=== PATIENT | female | born 1965 | race Caucasian/White ===

== ENCOUNTER 2021-09-09 15:08 | Outpatient (CLI) | payer OTHER, SELFPAY ==
--- NOTE | 2021-09-09 15:32 | MM_ITS ---
WS: [id number] BILATERAL 3D TOMOSYNTHESIS DIGITAL SCREENING MAMMOGRAPHY WITH CAD CLINICAL INFORMATION: SCREENING HISTORY: Screening mammogram. RIGHT breast pain COMPARISON: TECHNIQUE: Bilateral CC and MLO views. FINDINGS: Scattered fibroglandular densities bilaterally. A few tiny punctate calcifications. No suspicious foc al mass, asymmetry, calcifications, or architectural distortion. No evidence of malignancy. MM/[place] [id number] IMPRESSION: BI-RADS: 2-Benign FOLLOW UP: 1 Year Follow-up Recommend return to annual screening mammography.
== END 2021-09-09 15:09 | disposition home or self-care (01) ==
LOC: RAD 15:16
PROVIDERS: Family Provider Family Medicine; Visit Provider Family Medicine
DX: Z12.31 Encounter for screening mammogram for malignant neoplasm of breast (principal)
CPT/HCPCS: 77063; 77067

== ENCOUNTER → 2022-07-16 09:09 | Outpatient (BNVA) | payer OTHER, SELFPAY | PROVIDERS: Family Provider Family Medicine; Visit Provider Family Medicine | DX: R06.00 Dyspnea, unspecified (principal); R00.2 Palpitations; R07.89 Other chest pain | CPT/HCPCS: 80053; 80061; 84443; 85025 ==

== ENCOUNTER → 2023-05-13 10:22 | Outpatient (BNVA) | payer OTHER, SELFPAY | PROVIDERS: PCP Family Medicine; Visit Provider Nurse Practitioner Women's Health | DX: Z12.4 Encounter for screening for malignant neoplasm of cervix (principal); N93.9 Abnormal uterine and vaginal bleeding, unspecified | CPT/HCPCS: 82670; 83001; 83002; 87624 ==

== ENCOUNTER → 2023-06-10 13:48 | Outpatient (BNVA) | payer OTHER, SELFPAY | PROVIDERS: PCP Family Medicine; Visit Provider Nurse Practitioner Women's Health | DX: N93.9 Abnormal uterine and vaginal bleeding, unspecified (principal); R93.89 Abnormal findings on diagnostic imaging of other specified body structures | CPT/HCPCS: 76830 ==

== ENCOUNTER 2023-09-02 10:25 | Day surgery (SDC) | payer OTHER, SELFPAY ==
[2023-09-02] VITALS (7 sets, daily range): BP systolic 115–146; BP diastolic 71–85; PULSE 63–77; RESP 16–18; TEMP 36.1–36.6; O2SAT 95–98; BMI 35.2
--- NOTE | 2023-09-02 02:55 | P.HP_ITS ---
Same Day Surgery H&P Indication for Procedure/HPI DATE OF PROCEDURE: September 02, 2023 CHIEF COMPLAINT/INDICATIONFOR SURGICAL PROCEDURE: abnormal uterine bleeding PREOP DIAGNOSIS: abnormal uterine bleeding PLANNED PROCEDURE: Operation Date: 09/02/23 12:20 Proposed Procedures p Hysteroscopy, endometrial sampling, possible endometrial polypectomy 93354 N 93.9(Not Applicable) - Javed Trevizo MD s Poss Poylpectomy(Not Applicable) - Javed Trevizo MD 57 y.o. LNMP 2 years ago Since then, has had daily spotting Medications/Allergies* Home Medications Medication Instructions Recorded Confirmed Type aspirin 81 mg tablet,delayed 81 mg PO DAILY 08/18/22 09/01/23 History release ranitidine HCl 150 mg tablet 150 mg PO DAILY 08/18/22 09/01/23 History cetirizine 10 mg tablet (Zyrtec) 10 mg PO DAILY 09/01/23 09/01/23 History montelukast 10 mg tablet 10 mg PO DAILY 09/01/23 09/01/23 History Allergies/Adverse Reactions Allergy/AdvReac Type Severity Reaction Status Date / Time Penicillins AdvReac Unknown Unknown Verified 09/01/23 09:09 ARITHROMYCIN Allergy Unknown ADR-Vomitin Uncoded 06/30/23 10:58 g Pertinent History/Comorbid Conditions* Family History (Updated 05/13/23 @ 08:08 by Ana Ramirez CMA) Denies family history of Colon cancer Ovarian cancer Diabetes Heart disease Breast cancer Hypertension Uterine cancer Thyroid disease Stroke Pertinent Exam Findings alert, oriented x 3, clear to auscultation bilaterally and regular rate & rhythm Pertinent Data Pap 05-13-23 NILM Pelvic sono 06-10-23 endometrium thickened and heterogeneous, 1.4 cm Uterus 7.7 x 4.2 x 4.4 cm Irregular lobulated focus, 2 cm, noted in posterior fundus Normal ovaries Recommendations Surgery/Procedure today Coding Level of Care Code Acute Code for Chg Fwd Time Spent (min) 20
[2023-09-02] MEDS: sodium chloride 0.9% 1,000 ML 30 ML IV (11:09)
[2023-09-02] MEDS: scopolamine 1.5 Patch 1 PATCH TRANSDERMA (11:09)
--- NOTE | 2023-09-02 11:09 | W.PM.OPSUD ---
Surgery/Procedure H&P Update DATE OF PROCEDURE: September 02, 2023 DATE H&P PERFORMED: 09/02/23 H&P UPDATE INFORMATION: I have reviewed H&P completed within last 30 days, I have examined patient prior to procedure and No changes to prior documentation PREOP DIAGNOSIS: abnormal uterine bleeding PLANNED PROCEDURE: Operation Date: 09/02/23 12:20 Proposed Procedures p Hysteroscopy, endometrial sampling, possible endometrial polypectomy 64109 N93.9(Not Applicable) - Javed Trevizo MD s Poss Poylpectomy(Not Applicable) - Javed Trevizo MD
--- NOTE | 2023-09-02 11:30 | ANES.PREANE2 ---
Pre-Anesthetic Assessment Height/Weight: Height 1.7 m Weight 102.058 kg Temp Pulse Resp BP Pulse Ox O2 Del Method 97.4 F L 71 18 146/74 98 Room Air 09/02/23 11:06 09/02/23 11:06 09/02/23 11:06 09/02/23 11:06 09/02/23 11:06 09/02/23 11:00 Preop Diagnosis: abnormal uterine bleeding Operation Date: 09/02/23 12:20 Proposed Procedures p Hysteroscopy, endometrial sampling, possible endometrial polypectomy 65597 N93.9(Not Applicable) - Javed Trevizo MD s Poss Poylpectomy(Not Applicable) - Javed Trevizo MD Familial anesthetic complications: none Was Beta Adam taken within 24 hours: N/A Was Clonidine taken within 24 hours: N/A Last intake: Intake Last Liquid Date 09/01/23 Last Liquid Time 23:55 Last Solid Date 09/01/23 Last Solid Time 21:00 Social No alcohol and No tobacco Exam alert, oriented x 3, clear to auscultation bilaterally and regular rate & rhythm Airway Submandibular: within normal limits Cervical ROM: within normal limits Mallampati: Class II Dentition: full Pulmonary Asthma CV/HEM Arrythmia Metabolic Morbid Obesity Anesthetic Plan ASA status: 2 Anesthesia: General Medications/Allergies Home Medications Medication Instructions Recorded Confirmed Last Taken Type aspirin 81 mg tablet,delayed 81 mg PO DAILY 08/18/22 09/01/23 08/25/23 History release ranitidine HCl 150 mg tablet 150 mg PO DAILY 08/18/22 09/01/23 09/01/23 History cetirizine 10 mg tablet (Zyrtec) 10 mg PO DAILY 09/01/23 09/01/23 09/01/23 History montelukast 10 mg tablet 10 mg PO DAILY 09/01/23 09/01/23 09/01/23 History Allergies Allergy/AdvReac Type Severity Reaction Status Date / Time Penicillins AdvReac Unknown Unknown Verified 09/01/23 09:09 ARITHROMYCIN Allergy Unknown ADR-Vomitin Uncoded 06/30/23 10:58 g Current Medications Generic Name Dose Route Start Last Admin Trade Name Freq PRN Reason Stop Dose Admin Sodium Chloride 1,000 mls @ 30 mls/hr 09/02/23 10:45 09/02/23 11:09 Sodium Chloride 0.9% IV 09/03/23 10:44 30 mls/hr .Q24H ZARA Administration PFSH Anesthesia Family History Denies family history of Colon cancer Ovarian cancer Diabetes Heart disease Breast cancer Hypertension Uterine cancer Thyroid disease Stroke Data Anesthesia Cardiac Studies: Cardiac Event Monitor 07/20/22
--- NOTE | 2023-09-02 12:10 | PM.OP ---
Operative Report Date of procedure: September 02, 2023 Pre-op diagnosis: abnormal uterine bleeding Post-op diagnosis: same Post-op diagnosis: abnormal uterine bleeding endometrial polyps Post-op findings: + three endometrial polyps Otherwise, minimal endometrial tissue Procedure done: Hysteroscopy Endometrial sampling and polypectomy with Myosure Implants: none Specimens removed/disposition: endometrial tissue Surgeon: Javed Trevizo MD Anesthesia: General Estimated blood loss (mL): 10 Complications: none Condition: stable Disposition: PACU Brief History: 57 y.o. LNMP 2 years ago Since then, has had daily spotting Procedure: Informed consent signed. Patient was taken to the operating room. Anesthesia was induced. Patient was placed in dorsolithotomy position, prepped and draped for hysteroscopy. A bivalve speculum was placed in the vagina. The anterior lip of the cervix was grasped with a sharp-toothed tenaculum. The cervix was serially dilated with Hegar dilators. . A hysteroscope was placed into the endometrial cavity. The endometrial cavity was seen one large and two moderate-sized endometrial polyps. There was a small amount of endometrial tissue. A Myosure was then inserted and the polyps were removed. The endometrial cavity was seen to be intact. The hysteroscope and Myosure were then removed. Endometrial curettage was done with a sharp curette. Endometrial tissue was sent to pathology. The sharp-toothed tenaculum was removed. There was no bleeding from the endometrial cavity or cervix. The patient was then placed supine and awakened and taken to the PACU. Postop condition: stable EBL: 10 cc Sponge and instruments counts were normal x 2 Complications: none
[2023-09-02] MEDS: fentaNYL 50 mcg/mL INJ 2mL IVP (12:43)
[2023-09-02] MEDS: ondansetron 2 mg/ML SDV 2 mL 4 MG IVP (12:43)
--- NOTE | 2023-09-02 12:44 | SUR.PHASEII ---
RECEIVED PT FROM PACU STAFF. A+O X 3. PT WITH C/O HEADACHE AND NAUSEA. PT MEDICATED. AT BEDSIDE.
[2023-09-02] MEDS: diphenhydrAMINE 50 mg/mL SDV 1mL 12.5 MG IVP (13:42)
--- NOTE | 2023-09-02 15:03 | ANE.PACU2 ---
Inpatient post-anesthesia follow up: Airway intact: Yes Vital signs: Temperature 97.8 F Pulse Rate 63 Respiratory Rate 18 Blood Pressure 115/74 Pulse Oximetry 95 Oxygen Delivery Me thod Room Air Oxygen Flow Rate Fraction of Inspir ed Oxygen Hydration adequate: Yes Nausea and vomiting: Yes Pain level: 2 Mental status: Baseline
== END 2023-09-02 14:21 | disposition home or self-care (01) ==
PROVIDERS: PCP Family Medicine; Visit Provider Obstetrics & Gynecology
PROC: 0UJD8ZZ Inspection of Uterus and Cervix, Via Natural or Artificial Opening Endoscopic (ICD-10-PCS; CPT 58555; principal; 2023-09-02 12:10)
PROC: (CPT 58558; 2023-09-02 12:10)
DX: N84.0 Polyp of corpus uteri (principal); J45.909 Unspecified asthma, uncomplicated; E66.01 Morbid (severe) obesity due to excess calories; Z68.35 Body mass index [BMI] 35.0-35.9, adult; Z79.82 Long term (current) use of aspirin
CPT/HCPCS: 58558; 88305; J1200; J2405; J3010; J7030

== ENCOUNTER 2025-02-01 11:39 | Outpatient (CLI) | payer SELFPAY ==
[2025-02-01 13:00] LABS: Thyroid Stimulating Hormone 1.09 uIU/mL (0.27-4.20)
== END 2025-02-01 11:40 | disposition home or self-care (01) ==
LOC: LAB 11:40
PROVIDERS: PCP Family Medicine; Visit Provider Dermatology
DX: Z01.89 Encounter for other specified special examinations (principal)